=== PATIENT | male | born 1990 | race American Indian/Alaskan Native ===

== ENCOUNTER 2020-01-26 13:31 | Emergency (ER) | payer SELFPAY ==
[2020-01-26 13:52] VITALS: BP 121/91
--- NOTE | 2020-01-26 14:06 | Emergency Department Report ---
ED Male HPI - General Chief complaint: Urogenital-Male Stated complaint: STD Time Seen by Provider: 01/26/20 14:02 Source: patient Mode of arrival: Ambulatory Limitations: No Limitations - History of Present Illness Initial comments: This is a 29-year-old male nontoxic, well nourished in appearance, no acute signs of distress presents to the ED with for STD testing. Stated had some penile discharge with white color. Patient denies any testicular pain or swelling. Patient denies any penile ulcers or lesions. Patient denies any nausea, vomiting, chest pain, shortness of breathe, fever, chills, headache, back pain, numbness, tingling, stiff neck. Patient denies any urinary symptoms. Patient denies any allergies or PMH. MD Complaint: penile discharge Location: penis Radiation: none Severity scale (0 -10): 0 Improves with: none Worsens with: none discharge. denies: swelling, mass, rash, urinary retention, blood in urine, dysuria, fever, nausea/vomiting, incontinence - Related Data Allergies Allergy/AdvReac Type Severity Reaction Status Date / Time No Known Allergies Allergy Verified 01/26/20 13:49 ED Review of Systems ROS: Stated complaint: STD Other details as noted in HPI Constitutional: denies: chills, fever Eyes: denies: eye pain, eye discharge, vision change ENT: denies: ear pain, throat pain Respiratory: denies: cough, shortness of breath, wheezing Cardiovascular: denies: chest pain, palpitations Endocrine: no symptoms reported Gastrointestinal: denies: abdominal pain, nausea, diarrhea Genitourinary: discharge. denies: urgency, dysuria, frequency, hematuria Musculoskeletal: denies: back pain, joint swelling, arthralgia Skin: denies: rash, lesions Neurological: denies: headache, weakness, paresthesias Psychiatric: denies: anxiety, depression Hematological/Lymphatic: denies: easy bleeding, easy bruising ED Past Medical Hx - Past Medical History Previous Medical History?: No - Surgical History Past Surgical History?: No - Social History Smoking Status: Current Every Day Smoker Substance Use Type: None ED Physical Exam - General Limitations: No Limitations General appearance: alert, in no apparent distress - Head Head exam: Present: atraumatic, normocephalic - Neck Neck exam: Present: normal inspection, full ROM. Absent: tenderness, meningismus, lymphadenopathy - GI/Abdominal GI/Abdominal exam: Present: soft, normal bowel sounds. Absent: distended, tenderness, guarding, rebound, rigid, diminished bowel sounds - Extremities Exam Extremities exam: Present: normal inspection, full ROM - Back Exam Back exam: Present: normal inspection, full ROM. Absent: tenderness, CVA tenderness (R), CVA tenderness (L), muscle spasm, paraspinal tenderness, vertebral tenderness, rash noted - Neurological Exam Neurological exam: Present: alert, oriented X3, normal gait - Psychiatric Psychiatric exam: Present: normal affect, normal mood - Skin Skin exam: Present: warm, dry, intact, normal color. Absent: rash ED Course Vital Signs 01/26/20 13:49 Temperature 98.3 F Pulse Rate 57 L Respiratory 18 Rate Blood Pressure 121/91 O2 Sat by Pulse 98 Oximetry - Reevaluation(s) Reevaluation #1: 01/26/20 14:05 Patient is speaking in full sentences with no signs of distress noted. ED Medical Decision Making - Medical Decision Making This is a 29-year-old male that presents with nonmedical emergency. Patient is stable and was examined by me. Patient is currently asymptomatic and denies any symptoms. Patient states he just wants to be tested for STD. I will refer the patient [facility] and health Department. At time of discharge, the patient does not seem toxic or ill in appearance. No acute signs of distress noted. Patient agrees to discharge treatment plan of care. No further questions noted by the patient. Critical care attestation.: If time is entered above; I have spent that time in minutes in the direct care of this critically ill patient, excluding procedure time. ED Disposition Clinical Impression: Possible exposure to STD Disposition: Z-07 MED SCREENING EXAM-LEFT Is pt being admited?: No Does the pt Need Aspirin: No Condition: Stable Instructions: Safe Sex (ED) Additional Instructions: Follow-up with a primary care doctor in 3-5 days or if symptoms worsen and continue return to emergency room as soon as possible. Referrals: PRIMARY [facility] [Referring] - 3-5 Days DEE GAMBINO MD [Staff Physician] - 3-5 Days [facility] [Provider Group] - 3-5 Days
== END 2020-01-26 18:29 | disposition left against medical advice (07) ==
LOC: ED 13:31
DX: R36.9 Urethral discharge, unspecified (principal); Z20.2 Contact with and (suspected) exposure to infections with a predominantly sexual mode of transmission; F17.200 Nicotine dependence, unspecified, uncomplicated
CPT/HCPCS: 99281